=== PATIENT | female | born 2005 | race Caucasian/White ===

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

== ENCOUNTER 2023-01-15 07:24 | Day surgery (SDC) | payer OTHER ==
[~2023-01-15 07:24] MED LIST: FAMOTIDINE 20 MG/2 ML VIAL IV PRN; ONDANSETRON 4 MG/2 ML VIAL IVP PRN
[2023-01-15] MEDS ORDERED: DEXAMETHASONE SOD PHOSPHATE 4 MG/ML 1 ML VIAL IV ONE (07:37)
[2023-01-15] MEDS ORDERED: LACTATED RINGERS 1,000 ML IV SCH (07:37)
[2023-01-15 07:53] VITALS: RESP 16
[2023-01-15] MEDS ORDERED: FAMOTIDINE 20 MG/2 ML VIAL IVP ONE (08:09)
[2023-01-15] MEDS ORDERED: MIDAZOLAM 2 MG/2 ML VIAL IVP ONE (08:09)
[2023-01-15] MEDS ORDERED: MIDAZOLAM 2 MG/2 ML VIAL ONE (08:36)
[2023-01-15] MEDS ORDERED: LIDOCAINE 2% INJ 20 MG/ML (2 ML VIAL) ONE (08:36)
[2023-01-15] MEDS ORDERED: fentaNYL (PF) 50 MCG/ML 2 ML AMP ONE (08:36)
[2023-01-15] MEDS ORDERED: PROPOFOL 10 MG/ML 20 ML VIAL IV ONE (08:36)
[2023-01-15] MEDS ORDERED: SUCCINYLCHOLINE CHLORIDE 200 MG/10 ML VIAL IV ONE (08:36)
--- NOTE | 2023-01-15 09:19 | P.OP ---
Date of Procedure: 01/15/23 Preoperative Diagnosis: Chronic adenotonsillitis Tonsillar cryptitis Postoperative Diagnosis: Same Procedure(s) Performed: Adenotonsillectomycauterization of adenoids Anesthesia: CARMENA Surgeon: Tyron Rouse Estimated Blood Loss (ml): 3 Pathology: other (Tonsils) Condition: stable Disposition: PACU Indications for Procedure: The 17-year-old white female whose had difficulties with chronic and recurrent tonsillitis as well as chronic tonsillar cryptitis Operative Findings: Adenoids moderately enlarged at approximately 40% of nasopharynx, tonsils +3 bilaterally with crypts and debris in the crypts Description of Procedure: PROCEDURE: The patient was brought into the operative suite and placed in the supine position. The patient underwent induction of general anesthesia with oral endotracheal intubation without difficulty. The table was turned 90 degrees and the patient was positioned with a shoulder roll and head donut. The patient was prepped and draped in the usual aseptic fashion. The McIvor mouth gag was place d. The soft palate was palpated. No submucous cleft was noted. Red rubber Villafuerte catheters were placed through both nasal cavities and pulled through the oropharynx for soft palate retraction. The nasopharynx was examined with a mirror examiner and the adenoids were vaporized/cauterized with suction cautery. This ablated the adenoids and there was good hemostasis noted. The red rubber Villafuerte catheters were removed. The left tonsil was then grasped with a curved Allis clamp and dissected from the tonsillar fossa in a superior to inferior direction using both blunt and electrocautery dissection until the tonsils was removed. Once the tonsils were removed, hemostasis was gained with suction cautery. Attention was then turned to the right where the right tonsil was removed exactly as the left had been. Once hemostasis was obtained and remained good in both tonsillar fossa as well as the nasopharynx, the patient was suctioned in an orogastric fashion and the McIvor mouth gag was removed. The patient was then allowed to emerge from general anesthesia, having tolerated the procedure well. The patient was extubated in the operative suite and transferred to the postoperative recovery area in satisfactory condition.
[2023-01-15 09:33] VITALS: TEMP 97.2
[2023-01-15 10:25] VITALS: BP 145/80; PULSE 101
[2023-01-16] MEDS ORDERED: fentaNYL (PF) 50 MCG/ML 2 ML AMP IV PRN (07:00)
== END 2023-01-15 10:37 | disposition home or self-care (01) ==
LOC: OR 07:24
PROVIDERS: ATTEND Otolaryngology
DX: J35.3 Hypertrophy of tonsils with hypertrophy of adenoids (principal); F41.8 Other specified anxiety disorders; E66.9 Obesity, unspecified; Z79.899 Other long term (current) drug therapy; Z68.30 Body mass index [BMI] 30.0-30.9, adult
CPT/HCPCS: 81025; 88304; 42821; J2250; J0330; J1100; J0690; J2405; J3010; J2704; J2001

== ENCOUNTER → 2023-12-23 | Outpatient (CLI) | payer OTHER ==
--- NOTE | 2023-12-24 08:35 | US ---
EXAMINATION TYPE: US abdomen complete DATE OF EXAM: 12/23/2023 COMPARISON: US renal artery 2017 CLINICAL INDICATION: Female, 18 years old with history of R10.11 RUQ pain R10.813 RLQ pain R19.4 DEL ANGEL GE IN B; Pain within right side x 1 month. TECHNIQUE: Multiple sonographic images of the abdomen are obtained. FINDINGS: EXAM MEASUREMENTS: Liver Length: 12.3 cm Gallbladder Wall: 0.2 cm CBD: 0.4 cm Spleen: 6.5 cm Right Kidney: 11.0 x 5.5 x 3.7 cm Left Kidney: 10.7 x 4.7 x 5.2 cm CLINICAL ASSESSMENT MANAGER NOTES: Exam is limited due to gas. Pancreas: Slightly limited. Liver: Appears very coarse in echotexture. *Hyperechoic area seen anterior right lobe of the liver: 3 .3 x 2.2 x 2.0 cm. Additional workup with contrast CT is recommended. Gallbladder: Appears wnl Evidence for sonographic Barlow's sign: No CBD: Appears wnl Spleen: *Isoechoic- to slightly hypoechoic area seen medially: 1.6 x 1.6 x 1.6 cm. Likely a splenule . Right Kidney: No hydronephrosis or masses seen Left Kidney: No hydronephrosis or masses seen Upper IVC: Appears wnl Abd Aorta: Appears wnl IMPRESSION: 1. Isodense slightly hyperechoic area within the left lobe liver. Additional workup with contrast CT is recommended.
== END | disposition home or self-care (01) ==
LOC: RADUSWWP 07:14
PROVIDERS: ATTEND Family Medicine
DX: K76.89 Other specified diseases of liver (principal); R19.4 Change in bowel habit
CPT/HCPCS: 76700

== ENCOUNTER → 2024-11-12 | Outpatient (CLI) | payer OTHER ==
--- NOTE | 2024-11-12 10:57 | US ---
EXAMINATION TYPE: US abdomen complete DATE OF EXAM: 11/12/2024 COMPARISON: 12/23/23 CLINICAL INDICATION: Female, 19 years old with history of R10.84 GENERALIZED ABDOMINAL PAIN; generali zed abdomen pain TECHNIQUE: Grayscale and color Doppler imaging of the abdomen was performed. FINDINGS: EXAM MEASUREMENTS: Liver Length: 12.2 cm Gallbladder Wall: 0.2 cm CBD: 0.6 cm, color Doppler imaging was utilized to isolate the common bile duct for measurement. Spleen: 9.5 cm Right Kidney: 9.6 x 5.6 x 3.7 cm Left Kidney: 10.9 x 6.0 x 4.5 cm WATER RESOURCE ENGINEERING SPECIALIST NOTES: Limited due to body habitus Pancreas: heterogeneous, no dilated ducts masses or cysts.. Liver: heterogeneous no dilated ducts masses or cysts. Hyperechoic lesion in the right hepatic lobe measuring up to 2.6 cm. Gallbladder: wnl Evidence for sonographic Barlow's sign: No CBD: wnl Spleen: splenule seen Right Kidney: inf pole limited due to overlying bowel gas Left Kidney: wnl, No hydronephrosis, calculi or masses seen Upper IVC: obscured by bowel gas Abd Aorta: obscured by bowel gas The liver is homogenous. The intrahepatic portion of the IVC and proximal abdominal aorta are within normal limits. There is no evidence of cholelithiasis. Common bile duct is unremarkable. The visu alized portions of the pancreas are homogenous. The spleen is unremarkable. Kidneys are symmetric a nd free of hydronephrosis. No renal lesions are seen. IMPRESSION: 1. No evidence for acute process. 2. 2.6 cm slightly hyperechoic lesion in the liver which is likely benign etiology in the absence of risk factors in this patient's age. Consider MRI liver mass protocol for complete evaluation. [facility], , 11/12/2024 10:55 AM
== END | disposition home or self-care (01) ==
LOC: RADUSWWP 09:09
PROVIDERS: ATTEND Student in an Organized Health Care Education/Training Program
DX: R10.84 Generalized abdominal pain (principal); K76.9 Liver disease, unspecified
CPT/HCPCS: 76700